=== PATIENT | female | born 2000 | race Caucasian/White ===

== ENCOUNTER → 2023-02-14 08:52 | Outpatient (BNVA) | payer MEDICAID, SELFPAY | PROVIDERS: Family Provider Family Medicine; Visit Provider Nurse Practitioner Family | DX: D22.62 Melanocytic nevi of left upper limb, including shoulder (principal) | CPT/HCPCS: 99214 ==

== ENCOUNTER → 2023-05-09 10:46 | Outpatient (BNVA) | payer MEDICAID, SELFPAY | PROVIDERS: Family Provider Family Medicine; Visit Provider Nurse Practitioner Family | DX: L70.5 Acne excoriee (principal); L70.0 Acne vulgaris; L85.8 Other specified epidermal thickening; L02.32 Furuncle of buttock; L21.8 Other seborrheic dermatitis | CPT/HCPCS: 99214 ==